=== PATIENT | male | born 1970 | race Two or more races ===

== ENCOUNTER 2017-08-31 11:51 | Emergency (ER) | payer MEDICAID ==
[~2017-08-31] VITALS: Ht 167.6 cm; Wt 59.0 kg
[~2017-08-31 11:51] MED LIST: LORA-655 PO
[2017-08-31] MEDS ORDERED: SODIUM CHLORIDE 0.9% 1,000 ML IVB ONE (12:04)
[2017-08-31] MEDS ORDERED: LORazepam 2MG/ML-1ML VIAL IV ONE (12:15)
[2017-08-31 12:41] LABS: Basophils # (auto) 0.1 uL; Basophils % (auto) 1.1 % (0.0-2.0); Eosinophils # (auto) 0 uL; Eosinophils % (auto) 0.6 % (0.0-7.0); Lymphocytes % (auto) 20.6 % (10.0-50.0); Platelet Count (auto) 77 10^3/uL (140-450); White Blood Cell 4.9 10^3/uL (4.4-10.8)
[2017-08-31 12:43] LABS: Hematocrit 39.4 % (41.0-53.0); Hemoglobin 13.4 g/dL (13.5-17.5); Mean Corpuscular Hemoglobin 35.4 pg (28.0-32.0); Mean Corpuscular Volume 104.1 fL (80.0-100.0); Mean Platelet Volume 7.4 fL (6.9-10.8); Monocytes # (auto) 0.5 uL; Monocytes % (auto) 10.2 % (0.0-12.0); Neutrophils # (auto) 3.3 uL; Neutrophils % (auto) 67.5 % (37.0-80.0); Nucleated Red Blood Cells % 0.2 %; Red Cell Distribution Width 13.4 % (11.8-14.3)
[2017-08-31 13:29] LABS: Albumin 2.9 g/dL (3.4-5.0); BUN/Creatinine Ratio 12.3; Bilirubin, Total 1.1 mg/dL (0.2-1.0); Calcium 7.3 mg/dL (8.5-10.1); Potassium 3.6 mmol/L (3.5-5.1); Total Protein 7.6 g/dL (6.4-8.2)
[2017-08-31 15:22] VITALS: BP 108/69
== END 2017-08-31 18:13 | disposition home or self-care (01) ==
LOC: ER 11:51 → EDBD 11:51 → ER 18:13
DX: F10.129 Alcohol abuse with intoxication, unspecified (principal); F17.210 Nicotine dependence, cigarettes, uncomplicated
CPT/HCPCS: 36415; 80053; 80320; 85025; 94761; 96361; 96374; 99284; J2060; J7030

== ENCOUNTER 2019-08-19 12:26 | Emergency (ER) | payer MEDICAID ==
[~2019-08-19] VITALS: Ht 165.1 cm; Wt 72.6 kg
[2019-08-19 13:43] VITALS: BP 153/108
== END 2019-08-19 14:11 | disposition home or self-care (01) ==
LOC: ER 12:26
DX: H66.93 Otitis media, unspecified, bilateral (principal)

== ENCOUNTER 2019-09-15 00:51 | Emergency (ER) | payer MEDICAID ==
[~2019-09-15] VITALS: Ht 165.1 cm; Wt 63.5 kg
[2019-09-15] MEDS ORDERED: SODIUM CHLORIDE 0.9% 1,000 ML IV ONE (01:15)
[2019-09-15 01:36] LABS: Hemoglobin 11.6 g/dL (13.5-17.5)
[2019-09-15 01:37] LABS: Hematocrit 34.1 % (41.0-53.0); Mean Corpuscular Hemoglobin 35.1 pg (28.0-32.0); Mean Corpuscular Hgb Conc. 34.1 g/dL (32.0-36.0); Mean Corpuscular Volume 102.9 fL (80.0-100.0); Platelet Count (auto) 82 10^3/uL (140-450); Red Blood Cells 3.31 10^6/uL (4.5-5.90); Red Cell Distribution Width 13.8 % (11.8-14.3)
[2019-09-15 01:52] LABS: Albumin 2.4 g/dL (3.4-5.0); BUN/Creatinine Ratio 10.3; Calcium 7.4 mg/dL (8.5-10.1); Potassium 3.5 mmol/L (3.5-5.1)
[2019-09-15 01:55] LABS: Bilirubin, Total 2.2 mg/dL (0.2-1.0); Total Protein 6.5 g/dL (6.4-8.2)
[2019-09-15 01:56] LABS: Basophils % (manual) 0 (0.0-2.0); Blast Cells 0; Eosinophils % (manual) 0 (0-7); Myelocytes % 0; Promyelocytes % 0; Reactive Lymphocytes 0
[2019-09-15 02:36] LABS: Band Neutrophils % (manual) 3; Lymphocytes % (manual) 18 (10.0-50.0); Metamyelocytes % 1
[2019-09-15 02:37] LABS: Monocytes % (manual) 12 (0-12)
[2019-09-15] MEDS ORDERED: diphenhdrAMINE HCL 50 MG/1 ML VL IV ONE (02:45)
[2019-09-15] MEDS ORDERED: LORazepam 2MG/ML-1ML VIAL IV ONE (02:45)
[2019-09-15] MEDS ORDERED: HALOPERIDOL LACTATE 5 MG/ML INJ VIAL IM ONE (02:45)
[2019-09-15 03:14] LABS: Amphetamine Screen, Urine POSITIVE (NEGATIVE); Barbiturate Scree,Urine NEGATIVE (NEGATIVE); Benzodiazephine Screen, Urine NEGATIVE (NEGATIVE); Cannabinoid Screen, Urine NEGATIVE (NEGATIVE); Cocaine Screen, Urine NEGATIVE (NEGATIVE); Phencyclidine Screen, Urine NEGATIVE (NEGATIVE)
[2019-09-15 03:20] LABS: Urine Amorphous Crystal FEW /hpf (None Seen); Urine Bacteria FEW /hpf (None Seen); Urine Blood Negative /uL (Negative); Urine Hyaline Cast FEW /lpf (0 - 2); Urine Specific Gravity 1.005 (1.001-1.035); Urine WBC 1 /hpf (0 - 3)
[2019-09-15 03:22] LABS: Opiate Scree,Urine NEGATIVE (NEGATIVE)
[2019-09-15 04:46] VITALS: BP 126/69
== END 2019-09-15 08:19 | disposition home or self-care (01) ==
LOC: EDBD 00:51 → ER 00:53
DX: G92 Toxic encephalopathy (principal); F10.129 Alcohol abuse with intoxication, unspecified; F15.10 Other stimulant abuse, uncomplicated; R45.1 Restlessness and agitation; Y90.2 Blood alcohol level of 40-59 mg/100 ml
CPT/HCPCS: 36415; 80053; 80307; 80320; 81001; 85007; 85027; 96372; 96374; 96375; 99283; J1200; J1630; J2060

== ENCOUNTER 2019-12-06 18:17 | Emergency (ER) | payer MEDICAID ==
[~2019-12-06] VITALS: Ht 170.2 cm; Wt 72.6 kg
[2019-12-06] MEDS ORDERED: THIAMINE INJ 100 MG in SODIUM CHLORIDE 0.9% 1,000 ML IV ONE (18:45)
[2019-12-06 19:55] LABS: Basophils # (auto) 0.2 10 ^3/uL (0-0.2); Basophils % (auto) 4.9 % (0.0-2.0); Eosinophils # (auto) 0 10 ^3/uL (0-0.8); Eosinophils % (auto) 0.6 % (0.0-7.0); Hematocrit 42.9 % (41.0-53.0); Hemoglobin 14.5 g/dL (13.5-17.5); Lymphocytes # (auto) 1.4 10 ^3/uL (0.4-5.4); Lymphocytes % (auto) 28.8 % (10.0-50.0); Mean Corpuscular Hemoglobin 33.9 pg (28.0-32.0); Mean Corpuscular Hgb Conc. 33.8 g/dL (32.0-36.0); Mean Corpuscular Volume 100.4 fL (80.0-100.0); Monocytes # (auto) 0.6 10 ^3/uL (0-1.3); Monocytes % (auto) 12.5 % (0.0-12.0); Neutrophils # (auto) 2.5 10 ^3/uL (1.6-8.6); Neutrophils % (auto) 53.2 % (37.0-80.0); Nucleated Red Blood Cells % 0.3 %; Platelet Count (auto) 97 10^3/uL (140-450); Red Blood Cells 4.27 10^6/uL (4.5-5.90); Red Cell Distribution Width 15.7 % (11.8-14.3); White Blood Cell 4.7 10^3/uL (4.4-10.8)
[2019-12-06 20:10] LABS: Calcium 8.7 mg/dL (8.5-10.1); Magnesium 1.8 mg/dL (1.6-2.6); Potassium 3.5 mmol/L (3.5-5.1)
[2019-12-06 20:15] LABS: BUN/Creatinine Ratio 14.6; Bilirubin, Total 0.9 mg/dL (0.2-1.0); Total Protein 8.3 g/dL (6.4-8.2)
[2019-12-06 20:24] LABS: INR 1.13 (0.9-1.15); Partial Thromboplastin Time 29.9 sec (23.64-32.05)
[2019-12-06] MEDS ORDERED: SODIUM CHLORIDE 0.9% 1,000 ML IV ONE ×2 (22:30)
[2019-12-06] MEDS ORDERED: THIAMINE 100mg/ml INJ (200mg/2ml VIAL) ONE (23:56)
[2019-12-07] MEDS ORDERED: SODIUM CHLORIDE 0.9% 1,000 ML IV ONE (02:15)
[2019-12-07 09:15] VITALS: BP 128/77
== END 2019-12-07 10:22 | disposition home or self-care (01) ==
LOC: EDBD 18:17 → ER 18:17
DX: F10.229 Alcohol dependence with intoxication, unspecified (principal); Z59.0 Homelessness; F17.210 Nicotine dependence, cigarettes, uncomplicated; Y90.9 Presence of alcohol in blood, level not specified
CPT/HCPCS: 36415; 80053; 80320; 83735; 85025; 85610; 85730; 96365; 99285; J3411; J7030

== ENCOUNTER → 2020-03-30 | Emergency (ER) | payer MEDICAID ==
[~2020-03-30] VITALS: Ht 165.1 cm; Wt 72.6 kg
[~2020-03-30] MED LIST changes: +SODIUM CHLORIDE 0.9% 1,000 ML IV ONE; +SODIUM CHLORIDE 0.9% 1,000 ML IVB ONE; +THIAMINE 100mg/ml INJ (200mg/2ml VIAL) IV ONE; +chlordiazePOXIDE HCL 5 MG CAP PO ONE
[2020-03-30 15:19] LABS: Basophils # (auto) 0.1 10 ^3/uL (0-0.2); Eosinophils # (auto) 0 10 ^3/uL (0-0.8); Hemoglobin 12.7 g/dL (13.5-17.5); Lymphocytes # (auto) 0.2 10 ^3/uL (0.4-5.4); Mean Corpuscular Volume 103.9 fL (80.0-100.0); White Blood Cell 6.4 10^3/uL (4.4-10.8)
[2020-03-30 15:21] LABS: Basophils % (auto) 1.6 % (0.0-2.0); Hematocrit 37.4 % (41.0-53.0); Mean Corpuscular Hemoglobin 35.4 pg (28.0-32.0); Monocytes # (auto) 0.4 10 ^3/uL (0-1.3); Neutrophils # (auto) 5.7 10 ^3/uL (1.6-8.6); Neutrophils % (auto) 88.4 % (37.0-80.0); Nucleated Red Blood Cells % 0.3 %; Red Cell Distribution Width 15.8 % (11.8-14.3)
[2020-03-30 15:23] LABS: Platelet Count (auto) 44 10^3/uL (140-450)
[2020-03-30 15:41] LABS: Alanine Aminotransferase 69 U/L (16-61); Albumin 2.9 g/dL (3.4-5.0); Anion Gap 14 (5-15); Aspartate Aminotransferase 146 U/L (15-37); BUN/Creatinine Ratio 14.8; Blood Urea Nitrogen 20 mg/dL (7-18); Calcium 7.5 mg/dL (8.5-10.1); Carbon Dioxide 20 mmol/L (21-32); Chloride 105 mmol/L (98-107); GFR African American 72 mL/min; GFR Non-African American 60 mL/min; Glucose 62 mg/dL (74-106); Potassium 3.8 mmol/L (3.5-5.1); Sodium 139 mmol/L (136-145)
[2020-03-30 15:46] LABS: Alkaline Phosphatase 96 U/L (45-117); Bilirubin, Total 3.7 mg/dL (0.2-1.0); Total Protein 7.5 g/dL (6.4-8.2)
[2020-03-30 17:50] VITALS: BP 116/72
== END | disposition home or self-care (01) ==
LOC: EDUNIT# 14:12 → ER 14:14 → EDBD 14:14
DX: N39.0 Urinary tract infection, site not specified (principal); E86.0 Dehydration; F10.239 Alcohol dependence with withdrawal, unspecified; N20.0 Calculus of kidney; K80.20 Calculus of gallbladder without cholecystitis without obstruction; K70.30 Alcoholic cirrhosis of liver without ascites; Y90.9 Presence of alcohol in blood, level not specified
CPT/HCPCS: 36415; 71045; 74176; 80053; 84484; 85025; 96361; 96374; 99285; J3411; J7030

== ENCOUNTER 2020-12-03 13:15 | Emergency (ER) | payer MEDICAID ==
[~2020-12-03] VITALS: Ht 170.2 cm; Wt 65.8 kg
[~2020-12-03 13:15] MED LIST changes: -SODIUM CHLORIDE 0.9% 1,000 ML IV ONE; -SODIUM CHLORIDE 0.9% 1,000 ML IVB ONE; -THIAMINE 100mg/ml INJ (200mg/2ml VIAL) IV ONE; -chlordiazePOXIDE HCL 5 MG CAP PO ONE
[2020-12-03] MEDS ORDERED: SODIUM CHLORIDE 0.9% 1,000 ML IV ONE ×2 (13:30)
[2020-12-03] MEDS ORDERED: THIAMINE 100mg/ml INJ (200mg/2ml VIAL) IV ONE (13:30)
[2020-12-03 14:38] LABS: Basophils # (auto) 0.2 10 ^3/uL (0-0.2); Eosinophils # (auto) 0.1 10 ^3/uL (0-0.8); Lymphocytes # (auto) 1.4 10 ^3/uL (0.4-5.4); Monocytes # (auto) 0.4 10 ^3/uL (0-1.3); Neutrophils # (auto) 1.8 10 ^3/uL (1.6-8.6)
[2020-12-03 14:40] LABS: Basophils % (auto) 5.5 % (0.0-2.0); Eosinophils % (auto) 2.3 % (0.0-7.0); Hematocrit 32.4 % (41.0-53.0); Lymphocytes % (auto) 35.8 % (10.0-50.0); Mean Corpuscular Hemoglobin 32.9 pg (28.0-32.0); Mean Corpuscular Volume 96.7 fL (80.0-100.0); Neutrophils % (auto) 45.4 % (37.0-80.0); Nucleated Red Blood Cells % 0.3 %; Red Blood Cells 3.34 10^6/uL (4.5-5.90); Red Cell Distribution Width 16.9 % (11.8-14.3); White Blood Cell 3.9 10^3/uL (4.4-10.8)
[2020-12-03 14:56] LABS: Anion Gap 9 (5-15); Blood Urea Nitrogen 11 mg/dL (7-18); Carbon Dioxide 22 mmol/L (21-32); Chloride 115 mmol/L (98-107); Potassium 3.5 mmol/L (3.5-5.1); Sodium 146 mmol/L (136-145)
[2020-12-03 14:59] LABS: Alanine Aminotransferase 39 U/L (16-61); GFR African American 94 mL/min; GFR Non-African American 78 mL/min; Glucose 76 mg/dL (74-106)
[2020-12-03 15:08] LABS: Alkaline Phosphatase 120 U/L (45-117); Aspartate Aminotransferase 143 U/L (15-37); Bilirubin, Total 1.4 mg/dL (0.2-1.0); Total Protein 6.5 g/dL (6.4-8.2)
[2020-12-03] MEDS ORDERED: SODIUM CHLORIDE 0.9% 1,000 ML IVB ONE (17:45)
[2020-12-04 06:31] VITALS: BP 122/92
== END 2020-12-04 06:45 | disposition home or self-care (01) ==
LOC: EDUNIT# 13:15 → ER 13:15 → EDBD 13:15 → ER 12-04 06:45
DX: F10.229 Alcohol dependence with intoxication, unspecified (principal); F17.210 Nicotine dependence, cigarettes, uncomplicated; Y90.8 Blood alcohol level of 240 mg/100 ml or more
CPT/HCPCS: 36415; 71045; 80053; 80320; 84484; 85025; 96361; 96374; 99284; J3411

== ENCOUNTER 2021-01-07 19:19 | Emergency (ER) | payer MEDICAID ==
[~2021-01-07] VITALS: Ht 172.7 cm; Wt 72.6 kg
[2021-01-07] MEDS ORDERED: FOLIC ACID 1 MG TAB PO ONE (20:15)
[2021-01-07] MEDS ORDERED: THIAMINE HCL 100 MG TAB PO ONE (20:15)
[2021-01-08 11:46] VITALS: BP 123/74
== END 2021-01-08 12:15 | disposition still patient (30) ==
LOC: ER 19:19 → EDBD 19:19 → ER 01-08 12:15
DX: F10.920 Alcohol use, unspecified with intoxication, uncomplicated (principal)

== ENCOUNTER 2021-07-10 17:56 | Inpatient (IN) | payer MEDICAID ==
[~2021-07-10] VITALS: Ht 167.6 cm; Wt 66.5 kg
[2021-07-10] MEDS ORDERED: LORazepam 2MG/ML-1ML VIAL IV ONE (18:15)
[2021-07-10] MEDS ORDERED: ONDANSETRON HCL 4 MG/2 ML VIAL IV ONE ×2 (18:30→22:15)
[2021-07-10] MEDS ORDERED: SODIUM CHLORIDE 0.9% 1,000 ML IV ONE ×3 (18:30→22:45)
[2021-07-10] MEDS ORDERED: IOHEXOL 300 MG/ML 100ML BOTTLE IJ ONE (18:33)
[2021-07-10] MEDS: METOPROLOL TARTRATE 1MG/1ML-5ML VIAL IV SCH ×3 (18:35→18:41)
[2021-07-10 19:08] LABS: Hemoglobin 13.7 g/dL (13.5-17.5); Mean Corpuscular Hemoglobin 32.7 pg (28.0-32.0); Mean Corpuscular Hgb Conc. 33.3 g/dL (32.0-36.0); Mean Corpuscular Volume 98.2 fL (80.0-100.0); Red Blood Cells 4.18 10^6/uL (4.5-5.90); Red Cell Distribution Width 16.1 % (11.8-14.3); White Blood Cell 5.7 10^3/uL (4.4-10.8)
[2021-07-10 19:19] LABS: Basophils % (manual) 0 (0.0-2.0); Blast Cells 0; Eosinophils % (manual) 0 (0-7); Myelocytes % 0; Promyelocytes % 0; Reactive Lymphocytes 0
[2021-07-10 19:24] LABS: INR 1.75 (0.9-1.15); Partial Thromboplastin Time 37.9 sec (23.6-33.0)
[2021-07-10 19:31] LABS: Lactic Acid w/Reflex 5.6 mmol/L (0.4-2.0)
[2021-07-10] MEDS ORDERED: CIPROFLOXACIN 400MG/200ML 200 ML IV ONE (20:00)
[2021-07-10] MEDS ORDERED: metroNIDAZOLE 500MG/100ML 100 ML IV ONE (20:00)
[2021-07-10 20:18] LABS: Band Neutrophils % (manual) 41; Lymphocytes % (manual) 11 (10.0-50.0); Metamyelocytes % 1; Monocytes % (manual) 8 (0-12)
[2021-07-10 21:32] LABS: Albumin 2.2 g/dL (3.4-5.0); Calcium 7.2 mg/dL (8.5-10.1); Magnesium 1.8 mg/dL (1.6-2.6); Potassium 3.7 mmol/L (3.5-5.1)
[2021-07-10 21:37] LABS: BUN/Creatinine Ratio 16.6; Bilirubin, Total 2.4 mg/dL (0.2-1.0); Total Protein 7.6 g/dL (6.4-8.2)
[2021-07-10] MEDS ORDERED: ONDANSETRON HCL 4 MG/2 ML VIAL IV PRN (23:00)
[2021-07-10] MEDS ORDERED: LORazepam 2MG/ML-1ML VIAL IV PRN (23:00)
[2021-07-10] MEDS ORDERED: SODIUM CHLORIDE 0.9% 1,000 ML IV SCH (23:00)
[2021-07-10] MEDS ORDERED: MORPHINE SULFATE 4 MG/ML SYR/VIAL IV PRN (23:00)
[2021-07-10] MEDS ORDERED: PANTOPRAZOLE 40 MG/10 ML VIAL INJ IV ONE (23:00)
[2021-07-10 23:30] LABS: Urine Bacteria NONE SEEN /hpf (None Seen); Urine Blood 3+ /uL (Negative); Urine Hyaline Cast FEW /lpf (0 - 2); Urine Specific Gravity 1.021 (1.001-1.035); Urine WBC 2 /hpf (0 - 3)
[2021-07-11 00:30] VITALS: BP 107/66
[2021-07-11 05:00] VITALS: BP 103/63
[2021-07-11] MEDS ORDERED: metroNIDAZOLE 500MG/100ML 100 ML IV SCH (06:00)
[2021-07-11 06:24] LABS: Potassium 3.6 mmol/L (3.5-5.1)
[2021-07-11 06:32] LABS: Albumin 1.9 g/dL (3.4-5.0); BUN/Creatinine Ratio 18.7; Bilirubin, Total 1.9 mg/dL (0.2-1.0); Calcium 6.6 mg/dL (8.5-10.1); Total Protein 6.5 g/dL (6.4-8.2)
[2021-07-11 08:20] LABS: Hematocrit 34.7 % (41.0-53.0); Hemoglobin 11.7 g/dL (13.5-17.5); Mean Corpuscular Hemoglobin 33.1 pg (28.0-32.0); Mean Corpuscular Hgb Conc. 33.7 g/dL (32.0-36.0); Mean Corpuscular Volume 98.3 fL (80.0-100.0); Red Blood Cells 3.53 10^6/uL (4.5-5.90); Red Cell Distribution Width 16.5 % (11.8-14.3)
[2021-07-11 08:24] LABS: Basophils % (manual) 0 (0.0-2.0); Blast Cells 0; Eosinophils % (manual) 0 (0-7); Myelocytes % 0; Promyelocytes % 0; Reactive Lymphocytes 0
[2021-07-11 09:00] VITALS: BP 90/45
[2021-07-11] MEDS ORDERED: cefTRIAXone 1GM/50ML D5W 50 ML IV SCH (09:00)
[2021-07-11] MEDS: PANTOPRAZOLE 40 MG/10 ML VIAL INJ IV SCH (09:08)
[2021-07-11 10:58] LABS: Band Neutrophils % (manual) 13; Lymphocytes % (manual) 11 (10.0-50.0); Metamyelocytes % 3; Monocytes % (manual) 11 (0-12)
[2021-07-11] MEDS ORDERED: SODIUM CHLORIDE 0.9% 1,000 ML IV ONE (12:00)
[2021-07-11 12:50] LABS: Amphetamine Screen, Urine NEGATIVE (NEGATIVE); Barbiturate Scree,Urine NEGATIVE (NEGATIVE); Benzodiazephine Screen, Urine NEGATIVE (NEGATIVE); Cocaine Screen, Urine NEGATIVE (NEGATIVE); Opiate Scree,Urine NEGATIVE (NEGATIVE); Phencyclidine Screen, Urine NEGATIVE (NEGATIVE)
[2021-07-11 12:54] LABS: Alcohol, Urine < 3.0 mg/dL (0-10); Cannabinoid Screen, Urine POSITIVE (NEGATIVE)
[2021-07-11 13:00] VITALS: BP 91/58
[2021-07-11] MEDS ORDERED: LACTULOSE 20Gm/30ML SOLN PO SCH (14:00)
[2021-07-11] MEDS: FOLIC ACID 1 MG, MULTIPLE VITAMIN 10 ML, MAGNESIUM SULF SDV 50% 8 MEQ, THIAMINE INJ 100... INJ SCH ×5 (14:02)
[2021-07-11] MEDS: LACTATED RINGER'S 1,000 ML IV SCH ×2 (14:03→21:38)
[2021-07-11] MEDS: PIPERACILLIN-TAZOB 3.375GM 100 ML IV SCH ×2 (15:32→21:38)
[2021-07-11 16:17] LABS: Protein, Urine 67.3 mg/dL (0.0-11.9)
[2021-07-11 17:00] VITALS: BP 124/81
[2021-07-11] MEDS: OCTREOTIDE ACETATE 100 MCG/ML VL SUBCUT SCH ×2 (17:13→21:47)
[2021-07-11] MEDS ORDERED: MAGNESIUM SULFATE 1GM/100ML 100 ML IV ONE (17:30)
[2021-07-11 18:29] LABS: Cholesterol < 50 mg/dL (< 200)
[2021-07-11 18:31] LABS: HDL Cholesterol 6 mg/dL (40-59); LDL Cholesterol 15 mg/dL (< 100); Triglycerides 123 mg/dL (< 150)
[2021-07-11] MEDS: MIDODRINE HCL 10 MG TAB PO SCH (18:35)
[2021-07-11 22:00] VITALS: BP 134/93
[2021-07-12] MEDS: LACTATED RINGER'S 1,000 ML IV SCH ×4 (03:34→23:26)
[2021-07-12 05:00] VITALS: BP 115/72
[2021-07-12] MEDS: MIDODRINE HCL 10 MG TAB PO SCH ×3 (05:48→18:10)
[2021-07-12] MEDS: PIPERACILLIN-TAZOB 3.375GM 100 ML IV SCH ×2 (05:48→14:31)
[2021-07-12] MEDS: OCTREOTIDE ACETATE 100 MCG/ML VL SUBCUT SCH ×3 (05:49→21:12)
[2021-07-12 05:55] LABS: White Blood Cell 3.6 10^3/uL (4.4-10.8)
[2021-07-12 05:58] LABS: Hematocrit 31.7 % (41.0-53.0); Hemoglobin 10.8 g/dL (13.5-17.5); Mean Corpuscular Hemoglobin 33.3 pg (28.0-32.0); Mean Corpuscular Hgb Conc. 34.1 g/dL (32.0-36.0); Mean Corpuscular Volume 97.7 fL (80.0-100.0); Red Blood Cells 3.24 10^6/uL (4.5-5.90); Red Cell Distribution Width 16.2 % (11.8-14.3)
[2021-07-12 06:14] LABS: Basophils % (manual) 0 (0.0-2.0); Blast Cells 0; Eosinophils % (manual) 0 (0-7); Myelocytes % 0; Promyelocytes % 0; Reactive Lymphocytes 0
[2021-07-12 06:28] LABS: Albumin 1.7 g/dL (3.4-5.0); BUN/Creatinine Ratio 17.9; Bilirubin, Total 1.4 mg/dL (0.2-1.0); Calcium 6.8 mg/dL (8.5-10.1); Magnesium 2.5 mg/dL (1.6-2.6); Total Protein 5.9 g/dL (6.4-8.2)
[2021-07-12 06:35] LABS: Potassium 2.6 mmol/L (3.5-5.1)
[2021-07-12] MEDS ORDERED: POTASSIUM CHL 20 Meq TABLET PO ONE (07:00)
[2021-07-12 07:18] LABS: Band Neutrophils % (manual) 10; Lymphocytes % (manual) 13 (10.0-50.0)
[2021-07-12 07:21] LABS: Metamyelocytes % 2; Monocytes % (manual) 13 (0-12)
[2021-07-12] MEDS: PANTOPRAZOLE 40 MG/10 ML VIAL INJ IV SCH (08:48)
[2021-07-12 09:00] VITALS: BP 109/70
[2021-07-12] MEDS: POTASSIUM CHL 20MEQ/100ML 100 ML IV SCH ×3 (12:18→17:07)
[2021-07-12] MEDS: FOLIC ACID 1 MG, MULTIPLE VITAMIN 10 ML, MAGNESIUM SULF SDV 50% 8 MEQ, THIAMINE INJ 100... INJ SCH ×5 (12:19)
[2021-07-12 13:00] VITALS: BP 111/77
[2021-07-12] MEDS: PIPERACILLIN-TAZOB 2.25GM 50 ML IV SCH (21:11)
[2021-07-12 22:00] VITALS: BP 105/71
[2021-07-13 05:00] VITALS: BP 108/75
[2021-07-13 05:33] LABS: Red Cell Distribution Width 16.2 % (11.8-14.3); White Blood Cell 3.8 10^3/uL (4.4-10.8)
[2021-07-13 05:37] LABS: Hematocrit 31.3 % (41.0-53.0); Hemoglobin 10.7 g/dL (13.5-17.5); Mean Corpuscular Hemoglobin 33.1 pg (28.0-32.0); Mean Corpuscular Hgb Conc. 34.1 g/dL (32.0-36.0); Red Blood Cells 3.22 10^6/uL (4.5-5.90)
[2021-07-13 05:47] LABS: Basophils % (manual) 0 (0.0-2.0); Blast Cells 0; Metamyelocytes % 0; Myelocytes % 0; Promyelocytes % 0; Reactive Lymphocytes 0
[2021-07-13] MEDS: LACTATED RINGER'S 1,000 ML IV SCH ×3 (05:57→23:37)
[2021-07-13] MEDS: PIPERACILLIN-TAZOB 2.25GM 50 ML IV SCH ×2 (05:57→13:58)
[2021-07-13] MEDS: MIDODRINE HCL 10 MG TAB PO SCH ×3 (05:57→18:37)
[2021-07-13] MEDS: OCTREOTIDE ACETATE 100 MCG/ML VL SUBCUT SCH ×3 (05:58→22:57)
[2021-07-13 06:00] LABS: Albumin 1.5 g/dL (3.4-5.0); Calcium 7.5 mg/dL (8.5-10.1); Potassium 3.1 mmol/L (3.5-5.1)
[2021-07-13 06:03] LABS: BUN/Creatinine Ratio 15.7; Total Protein 5.5 g/dL (6.4-8.2)
[2021-07-13 06:16] LABS: Bilirubin, Total 1.6 mg/dL (0.2-1.0)
[2021-07-13 07:04] LABS: Band Neutrophils % (manual) 10; Eosinophils % (manual) 1 (0-7); Lymphocytes % (manual) 24 (10.0-50.0); Monocytes % (manual) 13 (0-12)
[2021-07-13] MEDS ORDERED: POTASSIUM CHL 20 Meq TABLET PO ONE (08:15)
[2021-07-13 09:00] VITALS: BP 116/70
[2021-07-13] MEDS: PANTOPRAZOLE 40 MG/10 ML VIAL INJ IV SCH (09:06)
[2021-07-13 12:52] VITALS: BP 111/74
[2021-07-13] MEDS: FOLIC ACID 1 MG, MULTIPLE VITAMIN 10 ML, MAGNESIUM SULF SDV 50% 8 MEQ, THIAMINE INJ 100... INJ SCH ×5 (13:40)
[2021-07-13 17:00] VITALS: BP 122/72
[2021-07-13] MEDS ORDERED: POTASSIUM CHL 20 Meq TABLET PO SCH (18:00)
[2021-07-13 22:00] VITALS: BP 120/78
[2021-07-13] MEDS: PIPERACILLIN-TAZOB 3.375GM 100 ML IV SCH (22:56)
[2021-07-14 05:00] VITALS: BP 104/68
[2021-07-14 06:42] LABS: Hematocrit 34.7 % (41.0-53.0); Hemoglobin 11.5 g/dL (13.5-17.5); Mean Corpuscular Hemoglobin 32.6 pg (28.0-32.0); Mean Corpuscular Hgb Conc. 33.1 g/dL (32.0-36.0); Mean Corpuscular Volume 98.4 fL (80.0-100.0); Red Blood Cells 3.52 10^6/uL (4.5-5.90); Red Cell Distribution Width 16.3 % (11.8-14.3); White Blood Cell 4.3 10^3/uL (4.4-10.8)
[2021-07-14] MEDS: OCTREOTIDE ACETATE 100 MCG/ML VL SUBCUT SCH ×3 (06:44→22:04)
[2021-07-14] MEDS: PIPERACILLIN-TAZOB 3.375GM 100 ML IV SCH (06:44)
[2021-07-14] MEDS: MIDODRINE HCL 10 MG TAB PO SCH ×3 (06:44→18:40)
[2021-07-14 06:56] LABS: Basophils % (manual) 0 (0.0-2.0); Blast Cells 0; Metamyelocytes % 0; Myelocytes % 0; Promyelocytes % 0; Reactive Lymphocytes 0
[2021-07-14 07:04] LABS: Albumin 1.3 g/dL (3.4-5.0); Calcium 7.3 mg/dL (8.5-10.1); Potassium 3.3 mmol/L (3.5-5.1)
[2021-07-14 07:10] LABS: Bilirubin, Total 2.2 mg/dL (0.2-1.0); Total Protein 5.6 g/dL (6.4-8.2)
[2021-07-14 07:26] LABS: BUN/Creatinine Ratio 12.9
[2021-07-14 07:49] LABS: Band Neutrophils % (manual) 2; Lymphocytes % (manual) 20 (10.0-50.0)
[2021-07-14 07:56] LABS: Eosinophils % (manual) 4 (0-7); Monocytes % (manual) 18 (0-12)
[2021-07-14 09:00] VITALS: BP 110/64
[2021-07-14] MEDS: PANTOPRAZOLE 40 MG/10 ML VIAL INJ IV SCH (10:07)
[2021-07-14] MEDS: POTASSIUM CHL 20 Meq TABLET PO SCH (10:07)
[2021-07-14] MEDS ORDERED: levoFLOXacin 500MG 100 ML IV SCH (12:30)
[2021-07-14] MEDS ORDERED: POTASSIUM CHLORIDE 60 MEQ, LIDOCAINE 1% (LOCAL ANESTH.) 6 ML in SODIUM CHL 0.9% 500 ML IV ONE (12:30)
[2021-07-14] MEDS: FOLIC ACID 1 MG, MULTIPLE VITAMIN 10 ML, MAGNESIUM SULF SDV 50% 8 MEQ, THIAMINE INJ 100... INJ SCH ×5 (12:55)
[2021-07-14 12:59] VITALS: BP 103/67
[2021-07-14] MEDS: LACTATED RINGER'S 1,000 ML IV SCH (13:10)
[2021-07-14] MEDS: levoFLOXacin 500MG 100 ML IV SCH (18:41)
[2021-07-14 21:50] VITALS: BP 118/73
[2021-07-15] MEDS: LACTATED RINGER'S 1,000 ML IV SCH ×2 (04:05→15:50)
[2021-07-15 04:43] VITALS: BP 100/61
[2021-07-15 06:16] LABS: INR 1.66 (0.9-1.15)
[2021-07-15 06:19] LABS: Potassium 4.1 mmol/L (3.5-5.1)
[2021-07-15] MEDS: MIDODRINE HCL 10 MG TAB PO SCH ×3 (06:21→18:06)
[2021-07-15] MEDS: OCTREOTIDE ACETATE 100 MCG/ML VL SUBCUT SCH ×2 (06:22→14:00)
[2021-07-15 06:27] LABS: Albumin 1.3 g/dL (3.4-5.0); BUN/Creatinine Ratio 11.7; Bilirubin, Total 2.1 mg/dL (0.2-1.0); Total Protein 5.3 g/dL (6.4-8.2)
[2021-07-15 08:58] VITALS: BP 105/71
[2021-07-15] MEDS: levoFLOXacin 500MG 100 ML IV SCH (11:19)
[2021-07-15] MEDS: PANTOPRAZOLE 40 MG/10 ML VIAL INJ IV SCH (11:19)
[2021-07-15] MEDS: POTASSIUM CHL 20 Meq TABLET PO SCH (11:19)
[2021-07-15] MEDS: FOLIC ACID 1 MG, MULTIPLE VITAMIN 10 ML, MAGNESIUM SULF SDV 50% 8 MEQ, THIAMINE INJ 100... INJ SCH ×5 (12:00)
[2021-07-15 13:00] VITALS: BP 107/72
[2021-07-15 17:00] VITALS: BP 128/87
[2021-07-15] MEDS ORDERED: OCTREOTIDE ACETATE 100 MCG/ML VL SUBCUT SCH (22:00)
== END 2021-07-15 17:28 | disposition home or self-care (01) | DRG 720 ==
LOC: EDBD 17:56 → ER 17:56 → TELE 22:49 → UNDOADMIN 22:49 → TELE 23:02 → TELE-WESTW 23:36 → WEST WING 07-15 02:46
PROVIDERS: ADMIT Nurse Practitioner; ATTEND Internal Medicine
DX: A41.9 Sepsis, unspecified organism (principal); N17.0 Acute kidney failure with tubular necrosis; K76.7 Hepatorenal syndrome; K85.20 Alcohol induced acute pancreatitis without necrosis or infection; D68.9 Coagulation defect, unspecified; E88.09 Other disorders of plasma-protein metabolism, not elsewhere classified; D69.6 Thrombocytopenia, unspecified; I21.A1 Myocardial infarction type 2; K70.31 Alcoholic cirrhosis of liver with ascites; K92.2 Gastrointestinal hemorrhage, unspecified; E87.6 Hypokalemia; R19.09 Other intra-abdominal and pelvic swelling, mass and lump; Z20.822 Contact with and (suspected) exposure to COVID-19; F12.90 Cannabis use, unspecified, uncomplicated; R56.9 Unspecified convulsions; Y90.0 Blood alcohol level of less than 20 mg/100 ml; K76.6 Portal hypertension; R79.89 Other specified abnormal findings of blood chemistry; F10.129 Alcohol abuse with intoxication, unspecified; F17.210 Nicotine dependence, cigarettes, uncomplicated; I48.91 Unspecified atrial fibrillation; I48.92 Unspecified atrial flutter; K80.10 Calculus of gallbladder with chronic cholecystitis without obstruction; N18.9 Chronic kidney disease, unspecified; F19.10 Other psychoactive substance abuse, uncomplicated; M62.82 Rhabdomyolysis; Z71.51 Drug abuse counseling and surveillance of drug abuser; Z59.00 Homelessness unspecified; Z79.899 Other long term (current) drug therapy
CPT/HCPCS: 36415; 70450; 71045; 74177; 76705; 76775; 78226; 80053; 80061; 80307; 80320; 81001; 82010; 82140; 82150; 82270; 82550; 82570; 83036; 83605; 83690; 83735; 83880; 84156; 84300; 84443; 84484; 85007; 85027; 85610; 85730; 87040; 87045; 87077; 87186; 87426; 87427; 87493; 93005; 93306; 96365; 96367; 96375; 96376; C9113; G0378; J0696; J1956; J2001; J2405; J2543; J3480; J3490

== ENCOUNTER 2021-07-31 15:24 | Emergency (ER) | payer MEDICAID ==
[~2021-07-31] VITALS: Ht 170.2 cm; Wt 68.0 kg
[2021-07-31 17:06] LABS: Basophils # (auto) 0 10 ^3/uL (0-0.2); Basophils % (auto) 0.7 % (0.0-2.0); Eosinophils # (auto) 0.1 10 ^3/uL (0-0.8); Eosinophils % (auto) 1.1 % (0.0-7.0); Hematocrit 29.9 % (41.0-53.0); Hemoglobin 10.4 g/dL (13.5-17.5); Lymphocytes # (auto) 1.4 10 ^3/uL (0.4-5.4); Lymphocytes % (auto) 25.5 % (10.0-50.0); Mean Corpuscular Hemoglobin 34.5 pg (28.0-32.0); Mean Corpuscular Hgb Conc. 34.7 g/dL (32.0-36.0); Mean Corpuscular Volume 99.3 fL (80.0-100.0); Monocytes # (auto) 0.6 10 ^3/uL (0-1.3); Monocytes % (auto) 10.6 % (0.0-12.0); Neutrophils # (auto) 3.3 10 ^3/uL (1.6-8.6); Neutrophils % (auto) 62.1 % (37.0-80.0); Red Blood Cells 3.01 10^6/uL (4.5-5.90); Red Cell Distribution Width 16.1 % (11.8-14.3); White Blood Cell 5.3 10^3/uL (4.4-10.8)
[2021-07-31 17:24] LABS: Albumin 2.2 g/dL (3.4-5.0); BUN/Creatinine Ratio 8.1; Calcium 8.7 mg/dL (8.5-10.1); Potassium 3.3 mmol/L (3.5-5.1)
[2021-07-31 17:26] LABS: Bilirubin, Total 2.1 mg/dL (0.2-1.0); Total Protein 7.6 g/dL (6.4-8.2)
[2021-08-01] VITALS: BP 122/85
== END 2021-08-01 00:15 | disposition home or self-care (01) ==
LOC: ER 15:24 → EDBD 15:24 → ER 08-01 00:15
DX: K86.1 Other chronic pancreatitis (principal); F17.210 Nicotine dependence, cigarettes, uncomplicated; Z59.00 Homelessness unspecified
CPT/HCPCS: 36415; 74176; 80053; 82150; 83690; 85025

== ENCOUNTER 2022-02-18 09:04 | Inpatient (IN) | payer MEDICAID ==
[~2022-02-18] VITALS: Ht 162.6 cm; Wt 52.4 kg
[2022-02-18] MEDS ORDERED: SODIUM CHLORIDE 0.9% 1,000 ML IV ONE ×3 (10:15→21:45)
[2022-02-18 10:51] LABS: Basophils # (auto) 0.1 10 ^3/uL (0-0.2); Basophils % (auto) 0.8 % (0.0-2.0); Eosinophils # (auto) 0 10 ^3/uL (0-0.8); Eosinophils % (auto) 0.3 % (0.0-7.0); Hematocrit 26.1 % (41.0-53.0); Hemoglobin 9.1 g/dL (13.5-17.5); Lymphocytes # (auto) 1.4 10 ^3/uL (0.4-5.4); Lymphocytes % (auto) 17.4 % (10.0-50.0); Mean Corpuscular Hemoglobin 33.4 pg (28.0-32.0); Mean Corpuscular Volume 95.5 fL (80.0-100.0); Monocytes # (auto) 0.7 10 ^3/uL (0-1.3); Monocytes % (auto) 8.6 % (0.0-12.0); Neutrophils # (auto) 5.9 10 ^3/uL (1.6-8.6); Neutrophils % (auto) 72.9 % (37.0-80.0); Nucleated Red Blood Cells % 0.2 %; Red Blood Cells 2.74 10^6/uL (4.5-5.90); Red Cell Distribution Width 16.1 % (11.8-14.3); White Blood Cell 8.1 10^3/uL (4.4-10.8)
[2022-02-18 12:06] LABS: Potassium 3.6 mmol/L (3.5-5.1)
[2022-02-18 12:15] LABS: Albumin 2.4 g/dL (3.4-5.0); BUN/Creatinine Ratio 14.5; Bilirubin, Total 1.6 mg/dL (0.2-1.0); Calcium 8.9 mg/dL (8.5-10.1); Total Protein 7.9 g/dL (6.4-8.2)
[2022-02-18] MEDS ORDERED: DEXTROSE 50% SYRINGE 50 ML IV ONE (18:28)
[2022-02-18] MEDS ORDERED: DEXTROSE (50%) 50ML SYRG IV ONE (18:45)
[2022-02-18] MEDS ORDERED: ONDANSETRON HCL 4 MG/2 ML VIAL IV PRN (21:45)
[2022-02-19] MEDS ORDERED: dilTIAZem 25 MG/5 ML VIAL IV ONE (04:15)
[2022-02-19 04:28] LABS: Basophils # (auto) 0.1 10 ^3/uL (0-0.2); Basophils % (auto) 0.8 % (0.0-2.0); Lymphocytes # (auto) 1.1 10 ^3/uL (0.4-5.4); Monocytes # (auto) 0.3 10 ^3/uL (0-1.3); Monocytes % (auto) 3.9 % (0.0-12.0); Nucleated Red Blood Cells % 0.1 %
[2022-02-19 04:30] LABS: Eosinophils # (auto) 0 10 ^3/uL (0-0.8); Eosinophils % (auto) 0.6 % (0.0-7.0); Hematocrit 22.3 % (41.0-53.0); Hemoglobin 7.8 g/dL (13.5-17.5); Mean Corpuscular Hemoglobin 33.8 pg (28.0-32.0); Mean Corpuscular Hgb Conc. 35.1 g/dL (32.0-36.0); Mean Corpuscular Volume 96.1 fL (80.0-100.0); Neutrophils # (auto) 5.3 10 ^3/uL (1.6-8.6); Neutrophils % (auto) 78.7 % (37.0-80.0); Red Blood Cells 2.32 10^6/uL (4.5-5.90); Red Cell Distribution Width 16.2 % (11.8-14.3); White Blood Cell 6.7 10^3/uL (4.4-10.8)
[2022-02-19 04:35] LABS: Albumin 2.2 g/dL (3.4-5.0); Calcium 8.8 mg/dL (8.5-10.1); Potassium 4.2 mmol/L (3.5-5.1)
[2022-02-19 04:37] LABS: BUN/Creatinine Ratio 14.1
[2022-02-19 04:40] LABS: Bilirubin, Total 1.6 mg/dL (0.2-1.0)
[2022-02-19 04:59] LABS: Amphetamine Screen, Urine NEGATIVE (NEGATIVE); Barbiturate Scree,Urine NEGATIVE (NEGATIVE); Benzodiazephine Screen, Urine NEGATIVE (NEGATIVE); Cannabinoid Screen, Urine NEGATIVE (NEGATIVE); Cocaine Screen, Urine NEGATIVE (NEGATIVE); Opiate Scree,Urine NEGATIVE (NEGATIVE); Phencyclidine Screen, Urine NEGATIVE (NEGATIVE)
[2022-02-19] MEDS ORDERED: SODIUM CHLORIDE 0.9% 500 ML IV ONE (06:45)
[2022-02-19] MEDS: cefTRIAXone 1GM/50ML D5W 50 ML IV SCH (07:08)
[2022-02-19] MEDS: PANTOPRAZOLE 40 MG TAB PO SCH (10:00)
[2022-02-19] MEDS: D5W/SOD CHLO 0.9% 1,000 ML IV SCH (13:15)
[2022-02-19 15:47] LABS: Urine Bacteria NONE SEEN /hpf (None Seen); Urine Blood Negative /uL (Negative); Urine Specific Gravity 1.035 (1.001-1.035); Urine WBC 27 /hpf (0 - 3)
[2022-02-19 15:56] LABS: Alcohol, Urine < 3.0 mg/dL (0-10); Amphetamine Screen, Urine NEGATIVE (NEGATIVE); Barbiturate Scree,Urine NEGATIVE (NEGATIVE); Cannabinoid Screen, Urine NEGATIVE (NEGATIVE); Cocaine Screen, Urine NEGATIVE (NEGATIVE); Opiate Scree,Urine NEGATIVE (NEGATIVE); Phencyclidine Screen, Urine NEGATIVE (NEGATIVE)
[2022-02-19 16:10] LABS: Benzodiazephine Screen, Urine NEGATIVE (NEGATIVE)
[2022-02-19 17:15] VITALS: BP 117/66
[2022-02-19 20:00] VITALS: BP 124/72
[2022-02-19 22:00] VITALS: BP 130/68
[2022-02-20] MEDS: D5W/SOD CHLO 0.9% 1,000 ML IV SCH ×5 (02:35→22:35)
[2022-02-20 05:00] VITALS: BP 146/89
[2022-02-20 09:00] VITALS: BP 125/66
[2022-02-20] MEDS: cefTRIAXone 1GM/50ML D5W 50 ML IV SCH (09:57)
[2022-02-20] MEDS: PANTOPRAZOLE 40 MG TAB PO SCH ×2 (09:57→22:35)
[2022-02-20] MEDS: FOLIC ACID 1 MG, MULTIPLE VITAMIN 10 ML, MAGNESIUM SULF SDV 50% 8 MEQ, THIAMINE INJ 100... INJ SCH ×5 (12:00)
[2022-02-20 13:00] VITALS: BP 118/83
[2022-02-20 13:57] LABS: INR 1.38 (0.9-1.15); Partial Thromboplastin Time 31.7 sec (23.6-33.0)
[2022-02-20] MEDS ORDERED: OCTREOTIDE ACETATE 100 MCG in SODIUM CHL 0.9% 50 ML IV ONE (14:30)
[2022-02-20 17:00] VITALS: BP 128/93
[2022-02-20] MEDS: OCTREOTIDE ACETATE 500 MCG in SODIUM CHL 0.9% 99 ML IV SCH (18:50)
[2022-02-20 21:51] VITALS: BP 118/78
[2022-02-20] MEDS: LACTULOSE 20Gm/30ML SOLN PO SCH (22:35)
[2022-02-20] MEDS: rifAXIMin 550 MG TAB PO SCH (22:36)
[2022-02-21] VITALS (8 sets, daily range): BP systolic 91–124; BP diastolic 53–80
[2022-02-21] MEDS: OCTREOTIDE ACETATE 500 MCG in SODIUM CHL 0.9% 99 ML IV SCH ×3 (00:30→20:30)
[2022-02-21] MEDS: D5W/SOD CHLO 0.9% 1,000 ML IV SCH ×5 (05:15→19:16)
[2022-02-21 06:47] LABS: Basophils # (auto) 0 10 ^3/uL (0-0.2); Eosinophils # (auto) 0.1 10 ^3/uL (0-0.8); Lymphocytes # (auto) 0.7 10 ^3/uL (0.4-5.4); Neutrophils # (auto) 4.8 10 ^3/uL (1.6-8.6); White Blood Cell 6.2 10^3/uL (4.4-10.8)
[2022-02-21 06:49] LABS: Basophils % (auto) 0.7 % (0.0-2.0); Eosinophils % (auto) 1.9 % (0.0-7.0); Hematocrit 17.5 % (41.0-53.0); Lymphocytes % (auto) 10.5 % (10.0-50.0); Mean Corpuscular Hemoglobin 35.3 pg (28.0-32.0); Mean Corpuscular Hgb Conc. 36.2 g/dL (32.0-36.0); Mean Corpuscular Volume 97.3 fL (80.0-100.0); Monocytes # (auto) 0.6 10 ^3/uL (0-1.3); Monocytes % (auto) 9.3 % (0.0-12.0); Neutrophils % (auto) 77.6 % (37.0-80.0); Red Cell Distribution Width 16.2 % (11.8-14.3)
[2022-02-21 06:58] LABS: Hemoglobin 6.4 g/dL (13.5-17.5)
[2022-02-21] MEDS: cefTRIAXone 1GM/50ML D5W 50 ML IV SCH (09:27)
[2022-02-21] MEDS: LACTULOSE 20Gm/30ML SOLN PO SCH ×4 (10:00→22:33)
[2022-02-21] MEDS: PANTOPRAZOLE 40 MG TAB PO SCH ×2 (11:45→22:31)
[2022-02-21] MEDS: rifAXIMin 550 MG TAB PO SCH ×2 (11:46→22:32)
[2022-02-21] MEDS ORDERED: diphenhdrAMINE HCL 50 MG/1 ML VL IV ONE ×2 (13:45→14:15)
[2022-02-21] MEDS: ACETAMINOPHEN 325 MG TAB PO PRN (13:57)
[2022-02-21] MEDS ORDERED: methylPREDNISolone SOD SUCC 125 MG/2 ML VL IV ONE (14:15)
[2022-02-21] MEDS: FOLIC ACID 1 MG, MULTIPLE VITAMIN 10 ML, MAGNESIUM SULF SDV 50% 8 MEQ, THIAMINE INJ 100... INJ SCH ×5 (17:58)
[2022-02-22] VITALS (12 sets, daily range): BP systolic 94–115; BP diastolic 68–85
[2022-02-22] MEDS: D5W/SOD CHLO 0.9% 1,000 ML IV SCH ×4 (02:28→18:22)
[2022-02-22] MEDS: OCTREOTIDE ACETATE 500 MCG in SODIUM CHL 0.9% 99 ML IV SCH ×2 (06:23→16:17)
[2022-02-22 07:14] LABS: Basophils # (auto) 0 10 ^3/uL (0-0.2); Basophils % (auto) 0.1 % (0.0-2.0); Eosinophils # (auto) 0 10 ^3/uL (0-0.8); Lymphocytes # (auto) 0.6 10 ^3/uL (0.4-5.4); Mean Corpuscular Hgb Conc. 35.5 g/dL (32.0-36.0); Monocytes # (auto) 0.4 10 ^3/uL (0-1.3); Neutrophils % (auto) 85.4 % (37.0-80.0); Red Cell Distribution Width 16.7 % (11.8-14.3)
[2022-02-22 07:17] LABS: Eosinophils % (auto) 0.1 % (0.0-7.0); Hematocrit 19.2 % (41.0-53.0); Lymphocytes % (auto) 8.9 % (10.0-50.0); Mean Corpuscular Hemoglobin 34.7 pg (28.0-32.0); Mean Corpuscular Volume 97.9 fL (80.0-100.0); Monocytes % (auto) 5.5 % (0.0-12.0); Neutrophils # (auto) 5.7 10 ^3/uL (1.6-8.6); Nucleated Red Blood Cells % 0.1 %; Red Blood Cells 1.96 10^6/uL (4.5-5.90); White Blood Cell 6.7 10^3/uL (4.4-10.8)
[2022-02-22 07:48] LABS: Hemoglobin 6.8 g/dL (13.5-17.5)
[2022-02-22] MEDS: cefTRIAXone 1GM/50ML D5W 50 ML IV SCH (10:02)
[2022-02-22] MEDS: LACTULOSE 20Gm/30ML SOLN PO SCH ×2 (10:25→21:34)
[2022-02-22] MEDS: rifAXIMin 550 MG TAB PO SCH ×2 (10:25→21:34)
[2022-02-22] MEDS: PANTOPRAZOLE 40 MG TAB PO SCH ×2 (10:25→21:34)
[2022-02-22 12:09] LABS: % Iron Saturation 12.9 % (20-55)
[2022-02-22] MEDS: FOLIC ACID 1 MG, MULTIPLE VITAMIN 10 ML, MAGNESIUM SULF SDV 50% 8 MEQ, THIAMINE INJ 100... INJ SCH ×5 (12:38)
[2022-02-22] MEDS: SODIUM FERR GLUC 62.5MG/5ML 125 MG in SODIUM CHL 0.9% 100 ML IV SCH (14:08)
[2022-02-22 23:28] LABS: Hematocrit 25.5 % (41.0-53.0)
[2022-02-23] MEDS: OCTREOTIDE ACETATE 500 MCG in SODIUM CHL 0.9% 99 ML IV SCH (02:36)
[2022-02-23] MEDS: D5W/SOD CHLO 0.9% 1,000 ML IV SCH ×4 (03:55→23:55)
[2022-02-23 05:00] VITALS: BP 119/79
[2022-02-23] MEDS ORDERED: MIDAZOLAM HCL 5 MG/ML-1ML VIAL ONE (08:56)
[2022-02-23] MEDS ORDERED: LIDOCAINE VISCOUS 2% 15ML UD ONE (08:56)
[2022-02-23] MEDS ORDERED: fentaNYL CITRATE 100 MCG/2 ML VL ONE (08:56)
[2022-02-23] MEDS ORDERED: diphenhdrAMINE HCL 50 MG/1 ML VL ONE (08:56)
[2022-02-23 09:00] VITALS: BP 101/68
[2022-02-23 09:17] LABS: Hematocrit 23.7 % (41.0-53.0)
[2022-02-23 09:19] LABS: Hemoglobin 8.4 g/dL (13.5-17.5)
[2022-02-23 09:32] LABS: INR 1.49 (0.9-1.15)
[2022-02-23] MEDS: cefTRIAXone 1GM/50ML D5W 50 ML IV SCH (09:34)
[2022-02-23] MEDS: PANTOPRAZOLE 40 MG TAB PO SCH ×2 (10:00→21:50)
[2022-02-23] MEDS: LACTULOSE 20Gm/30ML SOLN PO SCH ×2 (10:00→21:50)
[2022-02-23] MEDS: rifAXIMin 550 MG TAB PO SCH ×2 (10:00→21:50)
[2022-02-23] MEDS: SUCRALFATE 1 GM/10 ML ORAL SUSP PO SCH ×3 (11:58→21:50)
[2022-02-23] MEDS: FOLIC ACID 1 MG, MULTIPLE VITAMIN 10 ML, MAGNESIUM SULF SDV 50% 8 MEQ, THIAMINE INJ 100... INJ SCH ×5 (11:58)
[2022-02-23] MEDS: SODIUM FERR GLUC 62.5MG/5ML 125 MG in SODIUM CHL 0.9% 100 ML IV SCH (13:18)
[2022-02-23 17:22] VITALS: BP 93/61
[2022-02-23 22:00] VITALS: BP 105/72
[2022-02-24 05:00] VITALS: BP 108/74
[2022-02-24] MEDS: SUCRALFATE 1 GM/10 ML ORAL SUSP PO SCH ×2 (06:37→12:38)
[2022-02-24] MEDS: D5W/SOD CHLO 0.9% 1,000 ML IV SCH (06:37)
[2022-02-24 08:03] LABS: Hematocrit 23.7 % (41.0-53.0); Hemoglobin 8.7 g/dL (13.5-17.5); Red Blood Cells 2.55 10^6/uL (4.5-5.90); Red Cell Distribution Width 16.5 % (11.8-14.3); White Blood Cell 7.7 10^3/uL (4.4-10.8)
[2022-02-24 08:07] LABS: Mean Corpuscular Hgb Conc. 36.6 g/dL (32.0-36.0)
[2022-02-24 08:09] LABS: Basophils % (manual) 0 (0.0-2.0); Blast Cells 0; Eosinophils % (manual) 0 (0-7); Metamyelocytes % 0; Myelocytes % 0; Promyelocytes % 0; Reactive Lymphocytes 0
[2022-02-24] MEDS: cefTRIAXone 1GM/50ML D5W 50 ML IV SCH (08:29)
[2022-02-24] MEDS ORDERED: THIA100T5 PO (08:32)
[2022-02-24] MEDS ORDERED: SUCR1TAB22 PO (08:32)
[2022-02-24] MEDS ORDERED: FERR-7 PO (08:32)
[2022-02-24] MEDS ORDERED: FOLI1TAB6 PO (08:32)
[2022-02-24] MEDS ORDERED: PANT40T PO (08:32)
[2022-02-24] MEDS ORDERED: RIFA550T PO (08:33)
[2022-02-24 08:38] LABS: Band Neutrophils % (manual) 12; Lymphocytes % (manual) 10 (10.0-50.0); Monocytes % (manual) 7 (0-12)
[2022-02-24 08:57] VITALS: BP 97/69
[2022-02-24] MEDS: LACTULOSE 20Gm/30ML SOLN PO SCH (10:11)
[2022-02-24] MEDS: PANTOPRAZOLE 40 MG TAB PO SCH (10:11)
[2022-02-24] MEDS: rifAXIMin 550 MG TAB PO SCH (10:11)
[2022-02-24] MEDS: ACETAMINOPHEN 325 MG TAB PO PRN (10:12)
[2022-02-24 12:36] LABS: Hepatitis B Surface Antibody Negative (Negative)
[2022-02-24 12:54] VITALS: BP 96/64
[2022-02-24 13:04] VITALS: BP 96/64
[2022-02-24 13:13] LABS: Hepatitis A Total Antibody Positive (Negative)
[2022-02-24 13:57] LABS: Hepatitis C Antibody Negative (Negative)
== END 2022-02-24 14:05 | disposition home or self-care (01) | DRG 720 ==
LOC: ER 09:04 → OVERFLOW 21:38 → CENTRAL 02-19 16:38
PROVIDERS: ADMIT Nurse Practitioner; ATTEND Family Medicine
PROC: 30233N1 Transfusion of Nonautologous Red Blood Cells into Peripheral Vein, Percutaneous Approach (ICD-10-PCS; 2022-02-21)
PROC: 0DJ08ZZ Inspection of Upper Intestinal Tract, Via Natural or Artificial Opening Endoscopic (ICD-10-PCS; principal; 2022-02-23 09:58)
DX: A41.9 Sepsis, unspecified organism (principal); K72.00 Acute and subacute hepatic failure without coma; G93.41 Metabolic encephalopathy; N17.9 Acute kidney failure, unspecified; K72.90 Hepatic failure, unspecified without coma; D62 Acute posthemorrhagic anemia; K76.6 Portal hypertension; R62.7 Adult failure to thrive; D64.9 Anemia, unspecified; E86.0 Dehydration; F17.210 Nicotine dependence, cigarettes, uncomplicated; Z59.00 Homelessness unspecified; D50.9 Iron deficiency anemia, unspecified; R18.8 Other ascites; K20.90 Esophagitis, unspecified without bleeding; K22.89 Other specified disease of esophagus; K29.70 Gastritis, unspecified, without bleeding; K31.89 Other diseases of stomach and duodenum; K86.1 Other chronic pancreatitis; R79.89 Other specified abnormal findings of blood chemistry; K74.60 Unspecified cirrhosis of liver; Z20.822 Contact with and (suspected) exposure to COVID-19
CPT/HCPCS: 36415; 70450; 71045; 71260; 74177; 76705; 80053; 80307; 80320; 81001; 82140; 82270; 82962; 83540; 83550; 83605; 84484; 85007; 85014; 85018; 85025; 85027; 85379; 85610; 85730; 86704; 86706; 86708; 86803; 86850; 86900; 86901; 86920; 87040; 87340; 93005; 93970; 96360; 96361; G0378; J0696; J2250